=== PATIENT | female | born 1955 | race Caucasian/White ===

== ENCOUNTER 2020-06-05 10:58 | Inpatient (IN) | payer MEDICARE, OTHER ==
[~2020-06-05] VITALS: Ht 175.3 cm; Wt 81.6 kg
--- NOTE | ~2020-06-05 | OP ---
PATIENT NAME: BOBBY LORD MEDICAL RECORD: [id number] :51 LOCATION:[id number] ADMISSION DATE:06/24/20 SURGEON: ANAND SLAUGHTER MD DATE OF OPERATION: 06/24/2020 PREOPERATIVE DIAGNOSIS: Recurrent polyp of the ascending colon. POSTOPERATIVE DIAGNOSIS: Recurrent polyp of the ascending colon. PROCEDURE: Hand-assisted laparoscopic surgery -- right hemicolectomy. SURGEON: Anand Slaughter MD AMBULANCE ASSISTANT: None. BLOOD LOSS: Please see the anesthesia sheet. COMPLICATIONS: None. The risks, possible complications, alternatives of the procedure were explained to the patient. She elects to proceed. The discussion specifically included, but was not limited to with bleeding requiring emergency reoperation, infection, intestinal injury, anastomotic leakage and the possible need for a colostomy. OPERATIVE COURSE: The patient was conveyed to the operating room electively on 06/24/2020. General anesthesia was induced by anesthesia staff. The abdomen was sterilely prepped and draped. Skin incision was accomplished in the left upper quadrant. Through the skin incision, a Veress needle was inserted. CO2 insufflation was begun. Once a sufficient pneumoperitoneum had been achieved, a 5-mm trocar was inserted through this incision. Under direct internal vision utilizing a television camera, a 5-mm trocar was inserted through an incision in the left groin, another 5 mm trocar was inserted left of the umbilicus. During insertion of the Veress needle and all trocars, there appeared to have been no injury to the bowels, any intraperitoneal or retroperitoneal structures. I grasped the right colon. I folded it medially. I then began to incise along the right white line of Toldt with the laparoscopic EnSeal device. I then took down the hepatic flexure with laparoscopic EnSeal device as well. I was then able to perform some blunt dissection in the white line of Toldt to open it up a little bit further. I chose an area for insertion of my hand port and this was in the right upper quadrant. A transverse incision was accomplished there. I desufflated the abdomen. I then used a muscle technique rather than a muscle splitting technique. I dissected down through skin and subcutaneous tissues. I incised the external oblique muscle along the direction of its fibers. I then the internal oblique muscle along the direction of its fibers. I then the transverse abdominis muscle along the direction of its fibers. The peritoneal cavity was entered sharply. I was able to sweep down the retroperitoneal contents. The vena cava and ureter were protected during the procedure, so as the duodenum. I was able to exteriorize the ileum, the right colon, and portion of the transverse colon. A window was created in the mesentery of the ileum. I then stapled across the ileum with a SHANNAN-75 stapler. I chose the distal extent of my resection to be OPERATIVE REPORT [id number] BOBBY LORD out of the proximal transverse colon. I took down some of the omentum with electrocautery. I then created a window in the mesocolon. I stapled across the colon with a SHANNAN-75 stapler. The interposing mesentery was then taken down and may have sealed and taken down utilizing the super jaw EnSeal device. I then opened the specimen on the back table. The tattoos could easily be seen. An area where the polyp had been resected in the past was scarred and was easily identifiable. I placed the ileum and the transverse colon into apposition side by side, suturing the antimesenteric borders together. A small enterotomy and a small colotomy were accomplished. Anvils for the SHANNAN-75 stapler were advanced through the enterotomy and colotomy and then fired. The resulting enterocolonic defect was closed with a single firing of TA 60 stapler. There was no bleeding. I irrigated the right upper quadrant. I then returned the anastomosis to the peritoneal cavity. I ensured the bowel was not twisted. The transverse abdominis muscle and peritoneum was closed with running #1 Vicryl. The internal oblique muscle was closed with a running #1 Vicryl. The external oblique muscle was closed with a running #1 Vicryl. The subdermis was approximated with interrupted 3-0 Vicryl. The skin was approximated with a running intracuticular 3-0 Vicryl. Also, a few 4-0 Vicryl Rapide were used. The other 3 trocar sites were closed with interrupted intracuticular 3-0 Vicryls. Benzoin and Steri-Strips were applied. The patient was then extubated and conveyed to post-anesthesia care unit where she was in stable condition. TRANSINT:[id number] Voice Confirmation ID: [id number] DOCUMENT ID: [id number] ANAND SLAUGHTER MD CC: ENID BEATTY MD [id number] DICTATION DATE: 06/24/20 173 BRAN[facility] OFFICE ADMINISTRATOR: 06/25/20 0230 ADM IN [place] [id number] [place] [id number]
[2020-06-21] MEDS ORDERED: PROTONIX40 MG PO (10:55)
[2020-06-21] MEDS ORDERED: CYMBALTA60 MG PO (10:55)
[2020-06-21] MEDS ORDERED: PRAVACHOL20 MG PO (10:56)
[2020-06-21] MEDS ORDERED: TEMAZEPAM30 MG PO (10:56)
[2020-06-21] MEDS ORDERED: VOLTAREN75 MG PO (10:56)
[2020-06-21] MEDS ORDERED: TIROSINT137 MCG PO (10:56)
[2020-06-21] MEDS ORDERED: NORVASC10 MG PO (10:57)
[2020-06-21] MEDS ORDERED: CALCIUM 600 +1 EAC3 PO (10:57)
[2020-06-21] MEDS ORDERED: VITAMIN D10000 UNIT PO (10:57)
[2020-06-21] MEDS ORDERED: [UNRECOGNIZED DRUG - OTHER] PO (10:58)
[2020-06-21] MEDS ORDERED: STOOL SOFTENER100 M1 PO (10:58)
[2020-06-21 11:37] LABS: BASOPHILS 0.3 % (0-2); EOSINOPHILS 1.8 % (0-7); HEMATOCRIT 40.1 % (36.0-48.0); HEMOGLOBIN 13.2 g/dL (12-16); IMMATURE GRANULOCYTES 0.2 % (0-5); LYMPHOCYTE ABS# 2.66 10x3/uL (1.18-3.74); LYMPHOCYTES 40.8 % (15-50); MCH 30.3 pg (26.0-34.0); MCHC 32.9 g/dL (31.0-37.0); MEAN PLATELET VOLUME 10.7 fL (7.4-10.4); MONOCYTES 6.3 % (2-11); NEUTROPHILS 50.6 % (40-80); PLATELET COUNT 326 10x3/uL (130-400); RBC 4.36 10x6/uL (4.00-5.40); RDW 12.2 % (11.5-14.5); WBC 6.5 10x3/uL (4.8-10.8)
[2020-06-21 12:16] LABS: ANION GAP 13.6 mmol/L (8-16); CALCIUM 9.4 mg/dL (8.5-10.1); CARBON DIOXIDE 27.6 mmol/L (21.0-32.0); CREATININE - SERUM 0.9 mg/dL (0.6-1.3); POTASSIUM - SERUM 4.2 mmol/L (3.5-5.1)
[2020-06-24] VITALS (7 sets, daily range): BP systolic 103–119; BP diastolic 57–68; BMI 26.6
--- NOTE | 2020-06-24 13:27 | NUR ---
PT STATES 7.10 PAIN AFTER 1.5 OF DILAUDED WHEN WOKEN UP. NO GRIMACING. VSS. 96/55 76 HR 96%. AL RESTING WTIH EYES CLOSED.
--- NOTE | 2020-06-24 14:00 | NUR ---
PT RETURNED FROM OR ALERT AND ORIENTED, INCISION TO LEFT UPPER QUAD, 3 SMALL LAPARSCOPIC INCISIONS, ALL COVERED WITH DRESSING, DRESSING ARE INTACT AND DRY. SURGERY STATES GAVE 2 VERSED, 250 FENT, 2 TOTAL OF DILAUDID, AND 2 LTRS OF NS GIVEN. SURGERY STATES THAT PT HAS NOT PRODUCED ANY URINE BUT 35CC WHILE IN SURGERY.
--- NOTE | 2020-06-24 14:49 | NUR ---
I have reviewed this patient and I concur with the Shift Assessment completed by the Licensed Practical Nurse today this shift.
--- NOTE | 2020-06-24 15:43 | NUR ---
PT WITH SCDS PLACED AND PUMP ON AT THIS TIME, INSTRUCTIONAL SYSTEMS DESIGNER PUMP SETUP AND EDUACTED PT ON USEAGE.
--- NOTE | 2020-06-24 21:38 | NUR ---
PT RESTING IN BED AT THIS TIME. NO COMPLAINTS. ABLE TO MAKE WANTS AND NEEDS KNOWN CLEARLY. BED IN LOWEST POSITION AND CALL SHETH LIGHT IN REACH.
[2020-06-25] VITALS: BP 112/57; BP 90/55
[2020-06-25 04:00] VITALS: BP 93/46
[2020-06-25 04:54] LABS: BASOPHILS 0.1 % (0-2); EOSINOPHILS 0 % (0-7); HEMATOCRIT 34.4 % (36.0-48.0); IMMATURE GRANULOCYTES 0.2 % (0-5); LYMPHOCYTE ABS# 1.67 10x3/uL (1.18-3.74); LYMPHOCYTES 13.3 % (15-50); MCH 29.8 pg (26.0-34.0); MCV 93.2 fL (80.0-100.0); MEAN PLATELET VOLUME 10.8 fL (7.4-10.4); MONOCYTES 8.1 % (2-11); NEUTROPHIL ABS# 9.81 10x3/uL (1.56-6.13); NEUTROPHILS 78.3 % (40-80); PLATELET COUNT 292 10x3/uL (130-400); RBC 3.69 10x6/uL (4.00-5.40); RDW 12.3 % (11.5-14.5); WBC 12.5 10x3/uL (4.8-10.8)
[2020-06-25 05:16] LABS: ALBUMIN 3.1 g/dL (3.4-5.0); ALKALINE PHOSPHATASE 60 U/L (30-120); ALT (SGPT) 23 U/L (10-68); BILIRUBIN - TOTAL 0.43 mg/dL (0.2-1.3); CALC OSMOLALITY 282 mosm/kg (275-300); CALCIUM 8.1 mg/dL (8.5-10.1); CARBON DIOXIDE 27.7 mmol/L (21.0-32.0); CHLORIDE - SERUM 109 mmol/L (98-107); CREATININE - SERUM 0.7 mg/dL (0.6-1.3); GLUCOSE 121 mg/dL (74-106); MAGNESIUM - SERUM 2.1 mg/dL (1.8-2.4); PHOSPHOROUS 4.2 mg/dL (2.5-4.9); POTASSIUM - SERUM 4.5 mmol/L (3.5-5.1); PROTEIN - SERUM 6.3 g/dL (6.4-8.2); SODIUM 142 mmol/L (136-145); TROPONIN-I < 0.017 ng/mL (0.000-0.060); UREA NITROGEN 10 mg/dL (7-18); eGFR NON AFRICAN AMERICAN 88 mL/min (90-120)
[2020-06-25 09:34] VITALS: BP 122/64
--- NOTE | 2020-06-25 12:54 | NUR ---
I have reviewed this patient and I concur with the Shift Assessment completed by the Licensed Practical Nurse today this shift.
[2020-06-25 13:23] VITALS: BP 124/62
[2020-06-25 13:55] VITALS: Ht 175.3 cm; Wt 81.6 kg
[2020-06-25 18:55] VITALS: BP 104/57
[2020-06-25 20:00] VITALS: BP 137/50
[2020-06-26 04:00] VITALS: BP 100/67
--- NOTE | 2020-06-26 06:33 | NUR ---
PATIENT HAD PAIN MANAGED WITH THE PRESCRIBED PAIN MEDICATIONS, SHE IS CURRENTLY RESTING IN BED WITH HER EYES CLOSED.
[2020-06-26 06:44] LABS: BASOPHILS 0.3 % (0-2); EOSINOPHILS 1.8 % (0-7); HEMATOCRIT 33.4 % (36.0-48.0); HEMOGLOBIN 10.8 g/dL (12-16); IMMATURE GRANULOCYTES 0.1 % (0-5); LYMPHOCYTE ABS# 2.88 10x3/uL (1.18-3.74); LYMPHOCYTES 36.6 % (15-50); MCH 29.8 pg (26.0-34.0); MCHC 32.3 g/dL (31.0-37.0); MCV 92.3 fL (80.0-100.0); MEAN PLATELET VOLUME 10.8 fL (7.4-10.4); MONOCYTES 9.3 % (2-11); NEUTROPHIL ABS# 4.08 10x3/uL (1.56-6.13); NEUTROPHILS 51.9 % (40-80); PLATELET COUNT 276 10x3/uL (130-400); RBC 3.62 10x6/uL (4.00-5.40); RDW 12.2 % (11.5-14.5)
[2020-06-26 06:48] LABS: ALBUMIN 3.1 g/dL (3.4-5.0); ALKALINE PHOSPHATASE 53 U/L (30-120); ALT (SGPT) 25 U/L (10-68); BILIRUBIN - TOTAL 0.58 mg/dL (0.2-1.3); CALCIUM 8.6 mg/dL (8.5-10.1); CARBON DIOXIDE 28.9 mmol/L (21.0-32.0); CHLORIDE - SERUM 106 mmol/L (98-107); CREATININE - SERUM 0.6 mg/dL (0.6-1.3); GLUCOSE 108 mg/dL (74-106); PROTEIN - SERUM 6.2 g/dL (6.4-8.2); SODIUM 142 mmol/L (136-145); eGFR NON AFRICAN AMERICAN > 90 mL/min (90-120)
[2020-06-26 06:50] LABS: CALC OSMOLALITY 281 mosm/kg (275-300); POTASSIUM - SERUM 3.2 mmol/L (3.5-5.1); UREA NITROGEN 7 mg/dL (7-18)
[2020-06-26 06:53] LABS: WBC 7.9 10x3/uL (4.8-10.8)
--- NOTE | 2020-06-26 08:48 | NUR ---
PATIENT IS CONCERNED WITH DARK LOOSE STOOL AND WANTED TO HAVE STOOL TESTED SPOKE TO PATIENT AND BELL CLERK, PATIENT READY FOR DC, LAP SITES CDI, DRESSING CDI, NO NEEDS VOICED, ADVANCED DIET TO REG TO SEE IF TOLERATED. CONTINUE WITH PLAN OF CARE
[2020-06-26 08:49] VITALS: BP 117/69
[2020-06-26] MEDS ORDERED: HYDROCODON-ACE1 EAC7 PO (08:56)
== END 2020-06-26 12:42 | disposition home or self-care (01) | DRG 331 ==
LOC: D.SDCHOLD 06-24 07:05 → D.MS 06-24 07:05 → D.SDCHOLD 06-24 08:00 → D.MS 06-24 09:42 → D.SDCHOLD 06-24 11:30 → D.MS 06-26 12:42
PROVIDERS: ADMIT Surgery; ATTEND Surgery
PROC: 0DTF0ZZ Resection of Right Large Intestine, Open Approach (ICD-10-PCS; principal; 2020-06-24 09:15)
DX: K63.5 Polyp of colon (principal); I10 Essential (primary) hypertension; E78.5 Hyperlipidemia, unspecified; E03.9 Hypothyroidism, unspecified